=== PATIENT | female | born 1965 | race Caucasian/White ===

== ENCOUNTER 2024-05-08 15:07 | Outpatient (CLI) | payer BC, SELFPAY ==
--- NOTE | 2024-05-08 15:00 | ECG_ITS ---
Test Date: 2024-05-08 15:45:31 Measurements Intervals [place] Rate: 91 P: 55 LA: 155 QRS: 34 QRSD: 95 T: 43 QT: 362 QTc: 447 Interpretive Statements SINUS RHYTHM BASELINE ARTIFACT- I, II, III, AVR, AVL, AVF, V1-V6 NORMAL ECG No previous ECG available for comparison Electronically Signed On 05-08-2024 15:54:05 CDT by Justus Pierre D.O.
== END 2024-05-08 15:08 | disposition home or self-care (01) ==
PROVIDERS: PCP Internal Medicine; Visit Provider Urology
DX: E78.5 Hyperlipidemia, unspecified (principal)
CPT/HCPCS: 93005

== ENCOUNTER 2024-05-09 00:18 | Day surgery (SDC) | payer BC, SELFPAY ==
[2024-05-08 12:26] VITALS: BMI 22.4
--- NOTE | 2024-05-08 12:41 | PC.NURSE ---
Report to the Outpatient Waiting Room, entrance under the green pavilion located off [facility], at time _0800_ on date _[id number]_. Planned Procedure Time: _1000_. Time changes happen often and if your time is changed the preop area will call you the afternoon before. - You and your visitor will be asked to self-screen and do not enter if you have any COVID symptoms. - A mask is optional within the hospital at this time. Patients may have clear liquids (water, carbonated beverages, clear teas, apple juice) until 3 hours prior to surgery with a maximum of 20 ounces. - No food from midnight until time of surgery Take the following medications with a SIP of water the morning of surgery: ____Venlafaxine and Bupropion DO NOT STOP ANY OF YOUR OTHER PRESCRIPTION MEDICATIONS PRIOR TO SURGERY ?EXCEPT THE FOLLOWING Medications to discontinue per physician ____None Date to take last dose Please no make-up, nail latvian, hairspray, perfume, deodorant, or body powder the day of surgery. No jewelry (including any body piercings) or valuables the day of surgery, leave them at home. Please take a shower or bath the night before, or the morning of, surgery with an antibacterial soap. Wear comfortable, loose fitting clothing. - Jewelry must be removed prior to entering the operating room. Rings and piercings that are not removed may be cut off. - The hospital will not accept responsibility for valuables. - Please leave all valuables, including medications, at home the day of surgery. If you are going home after surgery, a licensed production truck driver must drive you home. - NO public transportation without another adult if you receive anesthesia. - We recommend that an adult stay with you for 24 hours following discharge. - We also recommend that you do not drive, make important decision, drink alcoholic beverages, or take any drugs that were not prescribed by your health care provider for at least 24 hours after your discharge time. Follow any additional instructions given to you from your surgeon. If you or anyone in your household have experienced Covid symptoms in the past week, please notify your surgeon or the nurse liaison at the phone number below for possible testing. Telephone instructions given to __Tonya__and asked if any additional questions and then verbalized understanding. Patient advised to call surgeon office or pre surgery nurse liaison [phone] if any additional questions.
[2024-05-09] VITALS (8 sets, daily range): BP systolic 107–147; BP diastolic 59–87; PULSE 74–97; RESP 8–20; TEMP 36.5–36.8; O2SAT 97–100
--- NOTE | ~2024-05-09 | XR_ITS ---
EXAMINATION: XR retrograde pyelo w/stent LT DATE: 05/09/2024 10:16 INDICATION: Left ureteral stone. TECHNIQUE: 6 intraoperative fluoroscopic views of the abdomen and pelvis were obtained. I was not pre sent. Fluoroscopy exposure time was 7 seconds. COMPARISON: None. FINDINGS: The left-sided retrograde pyelogram demonstrates mild hydronephrosis. The final images demo nstrate a left internal ureteral stent in expected position. IMPRESSION: 1. Mild left hydronephrosis. 2. Left internal ureteral stent in expected position. Reviewed, dictated and finalized at location A.
[2024-05-09] MEDS: LACTATED RINGERS 1,000 ML 30 ML IV CONT (08:40)
--- NOTE | 2024-05-09 08:57 | WPDHPUPDATE1 ---
History and Physical Update Update Date/Time: 05/09/24 08:57 History and Physical has been reviewed, including an updated exam of the patient. There are NO changes in the patient's condition. Risks, benefits, and alternatives have been discussed and questions answered. Patient agrees to proceed with procedure.
--- NOTE | 2024-05-09 08:59 | P.PNAN_ITS ---
Anes - Initial Pre Proc Eval Procedure: Operation Date: 05/09/24 10:00 Proposed Procedures p Cystoscopy, Left Retrograde Pyelogram, Left Ureteroscopy, Stone Extraction, Possible Laser Lithotripsy, Left Ureteral Stent Exchange - Ck Sharp MD Date/Time: 05/09/24 08:59 Surgeon: Ck Sharp MD Pre Op Diagnosis: Left ureteral stone Patient Data Age: 59 Gender: F Height: 1.55 m Weight: 57.9 kg Last Vital Signs Temp 36.8 C 05/09/24 08:19 Pulse 97 05/09/24 08:19 Resp 16 05/09/24 08:19 BP 133/87 05/09/24 08:19 Pulse Ox 100 05/09/24 08:19 O2 Del Method Room Air 05/09/24 08:19 Allergies Allergy/AdvReac Type Severity Reaction Status Date / Time latex Allergy Intermediate Difficulty Verified 05/09/24 08:27 Breathing Home Medications Medication Instructions Recorded Confirmed Type atomoxetine 60 mg capsule 60 mg PO DAILY 05/08/24 05/08/24 History atorvastatin 10 mg tablet 10 mg PO HS 05/08/24 05/08/24 History bupropion HCl 100 mg tablet,12 hr 100 mg PO DAILY 05/08/24 05/08/24 History sustained-release clindamycin phosphate 1 % topical 1 applic topical Q48H 05/08/24 05/08/24 History gel gabapentin 300 mg capsule 300 mg PO HS 05/08/24 05/08/24 History hydrocodone 5 mg-acetaminophen 325 1 tablet PO Q6H PRN Pain 05/08/24 05/08/24 History mg tablet multivitamin 1 tablet PO DAILY 05/08/24 05/08/24 History trazodone 50 mg tablet 50 mg PO HS 05/08/24 05/08/24 History venlafaxine 150 mg 100 mg PO BID 05/08/24 05/08/24 History capsule,extended release 24 hr vibegron 75 mg tablet (Gemtesa) 75 mg PO DAILY 05/08/24 05/08/24 History Patient hx anesthesia problems: none Family hx anesthesia problems: none Results Review: All pre-operative results and documents have been reviewed as part of the pre- operative evaluation. [facility] Past Medical History Medical History (Updated 07/30/24 @ 09:00 by Rodrigo Oliveros DO) Anxiety Fibromyalgia Hyperlipidemia TAMEKA (obstructive sleep apnea) Osteoarthritis Sjogren syndrome Surgical History Surgical History (Updated 05/09/24 @ 09:00 by Rodrigo Oliveros DO) History of History of hysterectomy Social History Social History Smoking status: Never smoker Alcohol intake: current Living arrangements: with family Spiritual care concerns: No Anes - Eval Final PreProcedure Day of Procedure 05/09/24 08:59 Patient weight: normal Heart: regular rate and rhythm Lungs: clear to auscultation Airway: Mallampati scale class II Neurological: alert and oriented Last oral intake: >/= 8 hours ASA classification: III Emergent: no Anesthetic plan: proceed Anesthesia type and monitoring: general LMA and standard monitoring Results Review: All pre-operative results and documents have been reviewed as part of the pre- operative evaluation. Informed Consent: The patient's anesthetic plan and its attendant risks and benefits were discussed with the patient/family/POA. Questions were solicited and answers provided to the satisfaction of the patient/family/POA.
[2024-05-09] MEDS: ceFAZolin 2 GM/D5W 50 ML 2 GM/50 ML BAG IVPB (09:38)
[2024-05-09] MEDS: LIDOCAINE HCL 2% GEL UROJET 10 ML PKG MUCOUS MEM (09:49)
--- NOTE | 2024-05-09 10:20 | W.PM.PROC2 ---
Procedure Note - Detailed Date of Procedure 05/09/24 Pre-op Diagnosis Left ureteral stone and renal stone Post-op Diagnosis Same Procedure Performed Cystoscopy, left retrograde pyelogram, left ureteroscopy with stone extraction, left ureteral stent replacement 4.8 Telugu contour Surgeon Ck Sharp MD Anesthesia General Description of Procedure Patient was taken to the operative suite correctly identified. Once anesthesia was obtained she was placed in dorsal lithotomy position and prepped and draped usual sterile fashion. A 22 Telugu scope was inserted the bladder. There were no tumors noted. The left ureteral stent was grasped brought out to the meatus. Sensor wire was passed through the stent. Rigid ureteral scope was then inserted into the stone was visualized in the proximal ureter. Using an escape basket we were able to retrieve it in 1 piece. We then placed a mini flexible ureteral scope into the kidney. A little calcification was noted in neck lower pole calyx. We grasped this retrieved it. Pyelogram was then performed. 4.8 contour stent was then placed with the proximal end coiled in the left renal pelvis and the distal in the bladder. Bladder was drained. 2% viscous lidocaine was inserted into the urethra. Patient is taken recovery stable condition. She will be discharged home with pain meds and antibiotic. She will follow-up in a week's time for stent removal. This completes dictation. Please send a copy of op note to my office. Estimated Blood Loss 0 Drains Yes Packing No Pathology Yes Complications No immediate complications Condition Stable Disposition PACU
[2024-05-09] MEDS: ONDANSETRON INJ 4 MG/2 ML VIAL IV PUSH (11:21)
== END 2024-05-09 11:47 | disposition home or self-care (01) ==
PROVIDERS: PCP Internal Medicine; Visit Provider Urology
PROC: (CPT 52352; principal; 2024-05-09 10:00)
DX: N20.2 Calculus of kidney with calculus of ureter (principal); E78.5 Hyperlipidemia, unspecified; M35.00 Sjogren syndrome, unspecified; M79.7 Fibromyalgia; G47.33 Obstructive sleep apnea (adult) (pediatric); F41.9 Anxiety disorder, unspecified
CPT/HCPCS: 52332; 52352; 74420; 82365; 88300; C1769; C1894; C2617; J0690; J2405; J3010; J7120; Q9966